=== PATIENT | female | born 2000 | race African-American/Black ===

== ENCOUNTER 2024-01-16 23:10 | Observation (INO) | payer BC, OTHER, SELFPAY ==
[2024-01-17 13:14] VITALS: BP 124/78; TEMP 97.9
== END 2024-01-17 16:42 | disposition home or self-care (01) ==
LOC: ERS 23:10 → SURG A 01-17 05:38
PROVIDERS: ADMIT Student in an Organized Health Care Education/Training Program; ATTEND Internal Medicine
DX: M25.571 Pain in right ankle and joints of right foot (principal); M25.471 Effusion, right ankle; J45.909 Unspecified asthma, uncomplicated; Z86.718 Personal history of other venous thrombosis and embolism; Z90.49 Acquired absence of other specified parts of digestive tract; Z88.5 Allergy status to narcotic agent
CPT/HCPCS: 36415; 80053; 83605; 84703; 85025; 85610; 85730; 86141; 87040; 96365; 96375; 96376; G0378; J0692; J1885; J2270; J2405; J3370; J3490

== ENCOUNTER 2024-05-23 03:01 | Emergency (ER) | payer BC, OTHER ==
[2024-05-23] MEDS ORDERED: Orphenadrine Citrate 100 MG ER.TAB ONE (03:35)
[2024-05-23] MEDS ORDERED: predniSONE 20 MG TAB ONE (03:35)
[2024-05-23] MEDS ORDERED: Ketorolac Tromethamine 30 MG (1 mL) VIAL ONE (03:35)
== END 2024-05-23 05:13 | disposition home or self-care (01) ==
LOC: ERS 03:01
DX: M79.604 Pain in right leg (principal)
CPT/HCPCS: 96372; J1885; J7512

== ENCOUNTER 2024-07-09 08:59 | Emergency (ER) | payer OTHER, SELFPAY ==
[2024-07-09] MEDS ORDERED: Dexamethasone 10 MG/ML VIAL ONE (09:41)
[2024-07-09] MEDS ORDERED: Ketorolac Tromethamine 30 MG (1 mL) VIAL ONE (09:45)
[2024-07-09 10:24] LABS: #Basophils Less than 0.03 10x3/uL (0.0-0.2); %Basophils 0.6 % (0.0-1.0); %Eosinophils 2.8 % (0.0-10.0); %Lymphocytes 40.9 % (21.0-51.0); %Monocytes 8.6 % (0.0-10.0); %Neutrophils 47.1 % (42.0-75.0); Hematocrit 36.6 % (36.0-47.0); Hemoglobin 11.8 g/dL (12.0-16.0); Mean Corpuscular HGB CONC 32.2 g/dL (32.0-36.0); Mean Corpuscular Hemoglobin 27.7 pg (27.0-31.0); Mean Corpuscular Volume 85.9 fL (78.0-98.0); Mean Platelet Volume 8.8 fL (7.4-10.4); Platelet Count 284 10x3/uL (130-400); RBC Distribution Width 13.1 % (11.5-14.5); Red Blood Cell (RBC) Count 4.26 mill/uL (4.20-5.40)
[2024-07-09 10:32] LABS: BHCG - Serum Negative (NEGATIVE); Pregs Control Background? CLEAR/WHITE (CLR/WHITE); Pregs Control Bar Appear? YES (CONTROL BAR)
[2024-07-09 11:14] LABS: ALT (SGPT) 10 U/L (8-55); AST (SGOT) 12 U/L (5-34); Albumin 3.3 g/dL (3.5-5.0); Alkaline Phosphatase 51 U/L (40-110); Anion Gap 12 mmol/L (10-20); BUN (Urea Nitrogen) 9 mg/dL (7.0-18.7); Bilirubin, Total 0.3 mg/dL (0.2-1.2); Calc. Creatinine Clearance 0 mL/min (70-130); Calcium 8.5 mg/dL (7.8-10.44); Carbon Dioxide 20 mmol/L (22-29); Chloride 107 mmol/L (98-107); Estimated GFR 122; Globulin 3.4 g/dL (2.4-3.5); Glucose 84 mg/dL (70-105); Potassium 3.7 mmol/L (3.5-5.1); Protein, Total 6.7 g/dL (6.0-8.3); Sodium 135 mmol/L (136-145)
== END 2024-07-09 11:44 | disposition home or self-care (01) ==
LOC: ERS 08:59
DX: R09.81 Nasal congestion (principal)
CPT/HCPCS: 36415; 70487; 80053; 83605; 84703; 85025; 96374; 96375; J1100; J1885